=== PATIENT | female | born 1960 | race Caucasian/White ===

== ENCOUNTER 2017-04-28 21:28 | Emergency (ER) | payer MEDICAID, OTHER ==
[~2017-04-28] VITALS: Ht 152.4 cm; Wt 54.0 kg
[2017-04-28] MEDS ORDERED: HYDROCODONE/ACETAMINOPHEN 5/325MG TABLET PO ONE (23:00)
[2017-04-28 23:24] VITALS: BP 123/70
== END 2017-04-28 23:33 | disposition home or self-care (01) ==
LOC: ER 21:30
DX: T88.8XXA Other specified complications of surgical and medical care, not elsewhere classified, initial encounter (principal); E11.9 Type 2 diabetes mellitus without complications; I10 Essential (primary) hypertension; Z89.611 Acquired absence of right leg above knee; Z90.49 Acquired absence of other specified parts of digestive tract; Y83.6 Removal of other organ (partial) (total) as the cause of abnormal reaction of the patient, or of later complication, without mention of misadventure at the time of the procedure; Y92.018 Other place in single-family (private) house as the place of occurrence of the external cause
CPT/HCPCS: 99283; Z7610

== ENCOUNTER 2019-08-22 15:59 | Emergency (ER) | payer OTHER ==
[~2019-08-22] VITALS: Ht 160 cm; Wt 55.0 kg
[2019-08-22 16:03] VITALS: BP 151/9
== END 2019-08-22 18:45 | disposition home or self-care (01) ==
LOC: ER 15:59
DX: B34.9 Viral infection, unspecified (principal); H66.92 Otitis media, unspecified, left ear; I10 Essential (primary) hypertension; E11.9 Type 2 diabetes mellitus without complications; Z89.511 Acquired absence of right leg below knee
CPT/HCPCS: 71045; 99283